=== PATIENT | female | born 1965 ===

== ENCOUNTER 2017-08-07 09:06 | Day surgery (SDC) | payer OTHER ==
[2017-08-07] MEDS ORDERED: Lactated Ringer's 500 ML IV ONE (09:47)
[2017-08-07] MEDS ORDERED: Propofol 10 mg/ml Inj (20 ML) ONE (11:17)
[2017-08-07 12:05] VITALS: BP 111/56; PULSE 57; RESP 16; TEMP 97.8; O2SAT 98
== END 2017-08-07 09:07 | disposition home or self-care (01) ==
LOC: H.ENDO 09:06 → EDSTATUS 09:15
PROVIDERS: ATTEND Internal Medicine Gastroenterology
DX: Z80.0 Family history of malignant neoplasm of digestive organs (principal); K64.1 Second degree hemorrhoids; E78.5 Hyperlipidemia, unspecified
CPT/HCPCS: 45378; J2704; J7120